=== PATIENT | female | born 1955 | race Caucasian/White ===

== ENCOUNTER → 2016-09-18 | Outpatient (CLI) | payer OTHER ==
--- NOTE | 2016-09-18 14:13 | RADRPT ---
PROCEDURE: XR right knee. CLINICAL INDICATION: Knee pain TECHNIQUE: AP weightbearing, lateral weightbearing and sunrise views are available for review. COMPARISON: None available FINDINGS: The osseous structures are normal in mineralization, architecture and alignment. No fractures are i dentified. No osseous lesions are identified. The joints are unremarkable. The soft tissues are u nremarkable. IMPRESSION: Unremarkable examination RPTAT: [facility] .Narendra Rodríguez MD, MD Date Time Electronically viewed and signed by .Narendra Rodríguez MD, on 09/18/2016 14:12 .B/
--- NOTE | 2016-09-19 07:57 | HKNOTE ---
DATE OF SERVICE: 09/18/2016 MAIN COMPLAINT: Pain and swelling of the right knee. HISTORY OF MAIN COMPLAINT: The patient is a 60-year-old female who underwent an arthroscopic operat ion on her right knee on 06/12/[address] Jacob Johnson in [place]. According to the patient, she was found to have a torn meniscus and quite significant arthritis in t he knee. She was very pleased with the result of the arthroscopic surgery and the knee was painless for about a month thereafter. Then, suddenly she went "downhill from there." She had rapidly increasing kerline n in the knee. She developed instability of the knee. She saw Dr. Johnson who said that she needed to have pain management. The patient comes in for another opinion. PRESENT COMPLAINTS: She gets pain in the right knee with every step that she takes. She is not usi ng a walking aid. The knee feels unstable all the time. It swells all the time. It will not exten d fully. Her pain is aggravated by walking, weightbearing, and stair climbing. She does get rest pain and ni ght pain (keeps her awake every night). She takes Tylenol and Advil for the pain. She takes occasi onal [place]. He does not have any history of disorder of her back. She never had an MRI scan of lum bar spine. She has no numbness or tingling in her legs. On a good day, she can walk a half a mile on a level surface with pain every step of the way. She limps all the time. He does not have a shoe lift. She can clip her toenails and tie her shoela kristina. SPORTING ACTIVITIES: She rides horses. PAST ORTHOPEDIC HISTORY: PREVIOUS ORTHOPEDIC OPERATIONS: Arthroscopic surgery to the right knee on 06/12/[address] Jacob Johnson at the [facility] in [place]. PRIOR CORTISONE INTAKE: One cortisone injection in the past. ALCOHOL INTAKE: Socially. OTHER JOINT PROBLEMS: None. BLOOD TESTS FOR ARTHRITIS: Yes, but she does not know results. WORK STATUS: The patient is retired. PAST MEDICAL HISTORY: Asthma. PAST SURGICAL HISTORY: 1. Cataract surgery, 2016. 2. section. 3. Bunionectomy. ALLERGIES: 1. CODEINE. 2. REGLAN. 3. COMPAZINE. MEDICATIONS: 1. Lexapro. 2. Protonix. 3. Xanax. FAMILY HISTORY: Father at 69 of heart problems. Mother at 86 of cancer. SYSTEMS REVIEW: Age related failing vision. Tendency to heartburn. Gait disturbance due to her kn ee. Chronic cough, otherwise negative. HABITS: The patient does not smoke. She drinks socially, minimally. COTTON AGENT: Dr. Gaudencio Lilly, [address], [address], [place], [place] [address]. PHYSICAL EXAMINATION GENERAL: The patient is a delightful and youthful 60-year-old female. She comes in with her lesly sumner. VITAL SIGNS: Height 5 feet 4 inches, weight 185 pounds. Blood pressure 140/80, temperature 98.6. GENERAL: The patient is not using a walking aid. She has a severe antalgic gait. HIPS: Both hips have a full range of motion without pain. RIGHT KNEE: The right knee shows normal alignment. Active and passive extension firmly lacks 10 de grees. Active and passive flexion firmly lacks 25 degrees. The medial and lateral collateral ligam ents and cruciate ligaments are intact. Simba test is negative. There is no scarring, crepitus, or cysts. There is 3+ effusion. Marked tenderness over the pes bursa. The patella tracks normally . There is no tenderness on the articular surface of the patella or in the patellar groove. The Q angle is normal. LEFT KNEE: The left knee shows normal alignment. Active and passive extension is 0 degrees. Activ e and passive flexion is 135 degrees. The medial and lateral collateral ligaments and cruciate liga ments are intact. Simba test is negative. There is no effusion, tenderness, scarring, or cysts. There is 2+ crepitus in the knee, none in the patella. The patella tracks normally. There is no t enderness on the articular surface of the patella or in the patellar groove. The Q angle is normal. IMAGING: Plain x-rays of the right knee obtained today at the [facility] show mild narr owing of the medial joint space and patellofemoral joint. DIAGNOSIS: 1. Status post arthroscopic surgery to the right knee for torn meniscus and arthritis. 2. Continued symptoms suggestive of a recurrent meniscal tear in the right knee. 3. Pes bursitis of the right knee. 4. Asthma. DISCUSSION: A 60-year-old female who had arthroscopic operation on her right knee for torn meniscus on 06/12/2016. She did extremely well for about 1 month after the surgery and then suddenly her sy mptoms reappeared, including the classic symptoms of a torn meniscus (instability, swelling, and valeria bility to extend fully at the knee). Examination fully bears out clinical findings consistent with an internal derangement of the right k nee. MANAGEMENT: The patient was advised that she needs to have a repeat MRI scan of the knee with gadol inium and further treatment will depend upon the findings. In my opinion, she almost certainly will need to have a repeat arthroscopic surgery to the knee. Under sterile conditions, the patient was given injection of 2 mL of Kenalog of 4 mL of 2% lidocaine into the pes bursa. Note that this was so effective that, at the time she left the office, she had almost no traceable limp. Dictated By: SAAD GRESHAM/PATRICIA Conf#: [id number] DID#: [id number]
== END | disposition home or self-care (01) ==
LOC: HKI 13:54
DX: M25.561 Pain in right knee (principal); M79.89 Other specified soft tissue disorders; M71.561 Other bursitis, not elsewhere classified, right knee; J45.909 Unspecified asthma, uncomplicated
CPT/HCPCS: 20610; G0463